=== PATIENT | male | born 1965 | race Caucasian/White ===

== ENCOUNTER 2025-03-02 08:23 | Outpatient (CLI) | payer OTHER, SELFPAY ==
--- NOTE | ~2025-03-02 | CT_ITS ---
EXAMINATION: CT sinus wo con DATE: 03/02/2025 08:36 INDICATION: Chronic sinusitis TECHNIQUE: Computed tomography (CT) of the paranasal sinuses was performed without intravenous contrast. The dose-length product was 267.62 mGy-cm. Automated exposure control and iterative reconstruction technique were employed. COMPARISON: None FINDINGS: There is near complete mucosal opacification of the left maxillary sinus with erosion of the medial wall. There is mucoperiosteal reaction. Mastoids are pneumatized. There is rightward nasal septal deviation. 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 Right ostiomeatal unit is patent. There is mild mucosal thickening of the ethmoid sinuses. Mastoids are pneumatized. IMPRESSION: 1. Chronic left maxillary sinus disease with mucoperiosteal reaction and erosion of the medial wall. Reviewed, dictated and finalized at location O. [facility] IMPRESSION: 1. Chronic left maxillary sinus disease with mucoperiosteal reaction and erosio n of the medial wall.
== END 2025-03-02 08:24 | disposition home or self-care (01) ==
LOC: MICIMG 08:24
PROVIDERS: PCP Otolaryngology; Visit Provider Otolaryngology
DX: J32.0 Chronic maxillary sinusitis (principal)
CPT/HCPCS: 70486